=== PATIENT | female | born 1970 | race Caucasian/White ===

== ENCOUNTER → 2016-06-29 | Outpatient (CLI) | payer BC ==
[~2016-06-29] VITALS: Ht 167.6 cm; Wt 93.0 kg
[~2016-06-29] MED LIST: ATOR20TA58 PO; CALC60OI TP; CELE200C PO; FOLI1TAB16 PO; HYDR-2666 PO; HYDR25TA9 PO; METH2.5T PO; THYR30TA PO; TIZA4TAB PO
[2016-06-29 08:18] VITALS: BP 140/88
--- NOTE | 2016-06-29 09:30 | RAD ---
EXAM: Sonographic guided left breast biopsy; left breast biopsy clip placement; left breast postbiopsy mammogram. HISTORY: 45-year-old female presents for sonographic guided biopsy of a left breast mass. TECHNIQUE: The risks of the procedure were discussed with the patient and written and verbal consent was obtained. A timeout was performed. Sonographic imaging of the left breast was performed and the lesion of concern was identified. This is a circumscribed hypoechoic lesion at the 3:00 position 10 cm from the nipple measuring 8 mm. The skin overlying this region was sterilely prepped, draped and infiltrated with 1% lidocaine. Multiple core biopsies were obtained through the lesion of concern was sonographic guidance. The core specimens were submitted to the department of pathology for analysis. A biopsy clip was advanced to the biopsy site. Manual compression was maintained until hemostasis was achieved. A sterile bandage placed. A post biopsy mammogram was obtained, demonstrating the biopsy clip in expected position. The patient tolerated the procedure without difficulty and was discharged in stable condition. IMPRESSION: 1. Successful sonographic guided biopsy of an 8 mm lesion at the 3:00 position of the left breast and postbiopsy clip placement. 2. An addendum to this report will be submitted when pathology results are available.
== END | disposition home or self-care (01) ==
LOC: US 07:41
PROVIDERS: ATTEND Surgery
DX: R92.8 Other abnormal and inconclusive findings on diagnostic imaging of breast (principal); N64.89 Other specified disorders of breast
CPT/HCPCS: 76942; C1713; G0206; 19081